=== PATIENT | male | born 1975 | race Caucasian/White ===

== ENCOUNTER 2018-12-27 22:25 | Emergency (ER) | payer OTHER ==
[2018-12-27 22:37] VITALS: TEMP 98.2
--- NOTE | 2018-12-27 23:25 | XR ---
EXAM: XR Soft Tissue Neck CLINICAL HISTORY: Possible foreign body TECHNIQUE: Frontal and lateral views of the soft tissues of the neck. COMPARISON: No relevant prior studies available. FINDINGS: Airway: Unremarkable. No abnormal narrowing. Bones/joints: Unremarkable. Soft tissues: Unremarkable. No abnormal soft tissue prominence. Normal epiglottis. IMPRESSION: No foreign body identified.
[2018-12-27] MEDS ORDERED: METOCLOPRAMIDE 5 MG/ML 2 ML VIAL IVP STA (23:39)
[2018-12-27] MEDS ORDERED: GLUCAGON 1 MG/ML VIAL IVP STA (23:39)
[2018-12-28 00:05] VITALS: RESP 18
[2018-12-28] MEDS ORDERED: MAG HYDROX/AL HYDROX/SIMETH 30 ML, HYOSCYAMINE ELIXIR 10 ML, CIMETIDINE HCL 300 MG, LID... PO STA ×4 (01:03)
--- NOTE | 2018-12-28 01:06 | ED ---
General Adult HPI - General Chief complaint: ENT Stated complaint: Chicken bone lodged in throat/ breathing,talking Time Seen by Provider: 12/27/18 22:48 Source: patient Mode of arrival: ambulatory Limitations: no limitations - History of Present Illness Initial comments: 43-year-old male patient presents to the emergency department today for evaluation of foreign body sensation to the throat. Patient states that he was eating chicken when he felt something become lodged at the base of his neck. Patient states that he did attempt to drink something and eat further in order to push the blockage through. Patient states that he was able to keep down the food and fluid however he still had a sensation to his throat. He is concerned he may have swallowed a chicken bone. He denies any difficulty breathing. He is not vomiting. States he did attempt to make himself throw up in order to clear the feeling but this did not help. Denies any fever or chills. Denies any history of similar symptoms. Patient denies any recent rash, chest pain, abdominal pain, diarrhea, constipation, back pain, numbness, tingling, dizziness, weakness, hematuria, dysuria, urinary urgency, urinary frequency, headache, visual changes, or any other complaints. - Related Data Home Medications Medication Instructions Recorded Confirmed Dexamethasone Oral [Decadron Oral] 5 mg PO TID 12/27/18 12/27/18 Previous Rx's Medication Instructions Recorded Lidocaine Viscous 2% [Xylocaine 5 ml PO Q4H PRN #100 ml 12/28/18 Viscous] Allergies Allergy/AdvReac Type Severity Reaction Status Date / Time No Known Allergies Allergy Unverified 12/27/18 22:52 Review of Systems ROS Statement: Those systems with pertinent positive or pertinent negative responses have been documented in the HPI. ROS Other: All systems not noted in ROS Statement are negative. Past Medical History Past Medical History: No Reported History History of Any Multi-Drug Resistant Organisms: None Reported Past Surgical History: No Surgical Hx Reported Past Psychological History: No Psychological Hx Reported Smoking Status: Former smoker Past Alcohol Use History: None Reported Past Drug Use History: None Reported General Exam Limitations: no limitations General appearance: alert, in no apparent distress, other (This is a well- developed, well-nourished adult male patient in no acute distress. Vital signs upon presentation are temperature 98.2F, pulse 103, respirations 17, blood pressure 145/74, pulse ox 98% on room air.) Eye exam: Present: normal appearance, PERRL, EOMI. Absent: scleral icterus, conjunctival injection, periorbital swelling ENT exam: Present: normal exam, normal oropharynx, mucous membranes moist Respiratory exam: Present: normal lung sounds bilaterally. Absent: respiratory distress, wheezes, rales, rhonchi, stridor Cardiovascular Exam: Present: regular rate, normal rhythm, normal heart sounds. Absent: systolic murmur, diastolic murmur, rubs, gallop, clicks GI/Abdominal exam: Present: soft, normal bowel sounds. Absent: distended, tenderness, guarding, rebound, rigid Neurological exam: Present: alert, oriented X3, CN II-XII intact Psychiatric exam: Present: normal affect, normal mood Skin exam: Present: warm, dry, intact, normal color. Absent: rash Course Vital Signs 12/27/18 12/28/18 12/28/18 22:32 00:04 01:42 Temperature 98.2 F Pulse Rate 103 H 105 H 98 Respiratory 17 18 18 Rate Blood Pressure 145/74 113/61 O2 Sat by Pulse 98 98 99 Oximetry Medical Decision Making - Medical Decision Making 43-year-old male patient presented to the emergency department today for evaluation of foreign body sensation to the throat at the base of the neck. Physical examination is unremarkable. Patient is tolerating oral intake with no vomiting or regurgitation. Soft tissue x-ray of the neck was obtained and showed no evidence for foreign body. We did attempt IV glucagon and Reglan without success. Patient is still reporting foreign body sensation. Patient was given a GI cocktail to relieve symptoms. He'll be discharged this time to follow-up with gastroenterology for further evaluation and possible endoscopy. Patient will be given prescription for viscous lidocaine to aid with symptom rel ief. Return parameters were discussed in detail. He verbalizes understanding and agrees with this plan. - Radiology Data Radiology results: report reviewed, image reviewed Soft tissue neck x-ray was obtained. Report was reviewed in its entirety. Impression by Dr. Boucher shows no foreign body identified. Disposition Clinical Impression: Foreign body sensation in throat Disposition: HOME SELF-CARE Condition: Good Instructions (If sedation given, give patient instructions): Esophageal Foreign Body (ED) Additional Instructions: Take medication as directed. Follow-up with your primary care physician for recheck as soon as possible. Follow-up with the senior safety support manager for further evaluation and possible endoscopy to evaluate the painful area. Return immediately if he develop any difficulty swallowing, fever, chills, or worsening pain. Return for any other new, worsening, or concerning symptoms. Prescriptions: Lidocaine Viscous 2% [Xylocaine Viscous] 5 ml PO Q4H PRN #100 ml PRN Reason: Discomfort Is patient prescribed a controlled substance at d/c from ED?: No Referrals: Savage Rose MD [STAFF PHYSICIAN] - 1-2 days Time of Disposition: 01:05
[2018-12-28 01:43] VITALS: BP 113/61; PULSE 98
== END 2018-12-28 01:43 | disposition home or self-care (01) ==
LOC: EC 22:25
DX: R09.89 Other specified symptoms and signs involving the circulatory and respiratory systems (principal); Z87.891 Personal history of nicotine dependence
CPT/HCPCS: 99283; 96374; 96375; 70360; J1610; J2765